=== PATIENT | male | born 1960 | race Caucasian/White ===

== ENCOUNTER 2019-10-31 11:06 | Inpatient (IN) | payer OTHER, BC ==
[2019-10-31] VITALS (8 sets, daily range): BP systolic 112–136; BP diastolic 72–90
[~2019-10-31] VITALS: Ht 182.9 cm; Wt 117.5 kg
[~2019-10-31 11:06] MED LIST: MOTRIN800 MG PO; SYNTHROID,LEVO75 MCG PO; VICODIN 500 MG-1 TAB PO
[2019-10-31] MEDS ORDERED: LOSARTAN POTASS25 M1 PO (11:22)
[2019-10-31] MEDS ORDERED: GEMFIBROZIL600 MG PO (11:23)
[2019-10-31 11:59] LABS: BASO # 0.1 10*3/uL (0.0-0.1); BASO % 1.2 % (0.0-1.0); EOS # 0.2 10*3/uL (0.0-0.4); EOS % 4.4 % (1.0-4.0); HEMATOCRIT 43.5 % (42.0-52.0); LYMPH # 1.8 10*3/uL (1.3-4.4); LYMPH % 36.5 % (27.0-41.0); MEAN CELL VOLUME 89.5 fl (80.0-94.0); MEAN CORPUSCULAR HGB CONC 32.4 g/dl (33.0-37.0); MEAN PLATELET VOLUME 11.1 fl (9.6-12.3); MONO # 0.5 10*3/uL (0.1-1.0); MONO % 10.8 % (3.0-9.0); NEUT # 2.4 10*3/uL (2.3-7.9); NEUT % 47.1 % (47.0-73.0); PLATELET COUNT AUTOMATED 255 10*3/uL (130-400); RED BLOOD COUNT 4.86 10*6/uL (4.50-5.90); RED CELL DISTRI WIDTH 13.5 % (0-14.5)
[2019-10-31 12:15] LABS: ALBUMIN 3.3 gm/dl (3.1-4.5); ALKALINE PHOSPHATASE 86 U/L (45-117); BUN 18 mg/dl (7-24); CHLORIDE 109 mmol/L (98-107); CREATININE 0.79 mg/dL (0.70-1.30); SGOT/AST 13 IU/L (3-35); SGPT/ALT 22 U/L (12-78); SODIUM 139 mmol/L (136-145); TOTAL PROTEIN 7.4 gm/dL (6.4-8.2)
[2019-10-31 12:20] LABS: TROPONIN I < 0.015 ng/ml (<0.045)
[2019-10-31 12:21] LABS: THYROID STIM HORMONE (HS) 0.665 uIU/ml (0.358-4.75)
--- NOTE | 2019-10-31 13:27 | NUR ---
NO CHANGE IN PATIENT STATUS/ASSESSMENT.
--- NOTE | 2019-10-31 14:29 | NUR ---
PATIENT AWARE OF ADMISSION. AWAITING BED ASSIGNMENT. NO CHANGE IN PATIENT STATUS OR ASSESSMENT. HE HAS AMBULATED TO THE BATHROOM WITHOUT DIFFICULTY. CALL HILL WITHIN REACH, WILL CONTINUE TO MONITOR.
--- NOTE | 2019-10-31 15:30 | NUR ---
A 59, admitted to 5E, under the services of LEXA Mckeon DO with a diagnosis of NEW ONSET AFIB. Chief complaint is FAMILY DOCTOR SENT HERE FOR IRREGULAR HEART. Patient arrived via stretcher from ER. Monitor applied. Initial assessment completed. Vital signs taken and recorded. LEXA MCKEON DO notified of admission to the unit. Orders received. See assessment for past medical history, medications and allergies. Patient and/or family oriented to unit. [facility] visitation policy reviewed. Clothing/patient valuable form completed. KELSIE RUSH
--- NOTE | 2019-10-31 15:40 | NUR ---
ROOM IS NOW CLEAN AND READY . PATIENT WAS TRANSPORTED TO INPATIENT ROOM #532 WITHOUT INCIDENT.
--- NOTE | 2019-10-31 19:30 | NUR ---
REPORT RECEIVED FROM VIVIAN YUAN. PT LYING IN BED PLAYING ON PHONE AT THIS TIME. PT VOICES NO COMPLAINTS. CALL LIGHT IN REACH
--- NOTE | 2019-10-31 22:00 | NUR ---
PT LYING IN BED AT THIS TIME PLAYING ON PHONE. CALL LIGHT IN REACH
[2019-11-01] VITALS (7 sets, daily range): BP systolic 103–124; BP diastolic 63–88
--- NOTE | 2019-11-01 01:00 | NUR ---
PT SLEEPING AT THIS TIME
--- NOTE | 2019-11-01 03:00 | NUR ---
PT UP TO BR AT THIS TIME. HR IN 130'S PER CM. PT RETURNS TO BED, HR BACK TO NORMAL. PT ASYMPTOMATIC. CALL LIGHT IN REACH
[2019-11-01 06:18] LABS: BASO # 0.1 10*3/uL (0.0-0.1); BASO % 1.1 % (0.0-1.0); EOS # 0.3 10*3/uL (0.0-0.4); EOS % 4.9 % (1.0-4.0); HEMATOCRIT 48.2 % (42.0-52.0); LYMPH # 2.2 10*3/uL (1.3-4.4); LYMPH % 39.5 % (27.0-41.0); MEAN CELL VOLUME 91.1 fl (80.0-94.0); MEAN CORPUSCULAR HGB 28.9 pg (27.0-31.0); MEAN CORPUSCULAR HGB CONC 31.7 g/dl (33.0-37.0); MEAN PLATELET VOLUME 11.6 fl (9.6-12.3); MONO # 0.6 10*3/uL (0.1-1.0); NEUT # 2.4 10*3/uL (2.3-7.9); NEUT % 44.3 % (47.0-73.0); PLATELET COUNT AUTOMATED 257 10*3/uL (130-400); RED BLOOD COUNT 5.29 10*6/uL (4.50-5.90); RED CELL DISTRI WIDTH 13.4 % (0-14.5); WHITE BLOOD COUNT 5.5 10*3/uL (4.8-10.8)
[2019-11-01 06:19] LABS: ALBUMIN 3.7 gm/dl (3.1-4.5); BUN 17 mg/dl (7-24); CHLORIDE 105 mmol/L (98-107); CHOLESTEROL 188 mg/dL (<200); CREATININE 0.86 mg/dL (0.70-1.30); POTASSIUM 4.4 mmol/L (3.5-5.1); SGOT/AST 16 IU/L (3-35); SGPT/ALT 27 U/L (12-78); SODIUM 137 mmol/L (136-145); TOTAL PROTEIN 7.9 gm/dL (6.4-8.2); TRIGLYCERIDES 161 mg/dl (<150); VLDL CHOLESTEROL 32 mg/dL (6-40)
[2019-11-01 06:21] LABS: ALKALINE PHOSPHATASE 95 U/L (45-117); HDL CHOLESTEROL 41 mg/dl (40-60); LDL CHOLESTEROL 115 mg/dL (9-159)
[2019-11-01 06:24] LABS: ACT PARTIAL THROMBO TIME 28.3 SECONDS (20.0-32.1)
[2019-11-01 07:34] LABS: VITAMIN D, 25-HYDROXY 25.3 ng/mL (30-100)
--- NOTE | 2019-11-01 09:00 | NUR ---
[facility] in to talk to patient. Patient states lives at home with . There are 3 steps in the home. Physician: johny Pharmacy: [facility] Home health services: none Patient's level of ADLs: INDEPENDENT Patient has working utilities: all working DME: none Follow-up physician's appointment after d/c: will be made by hospitalist nurse director upon discharge Does patient want to access PORTAL?: no Discharge plan discussed with patient, he lives at home with , he is independent in adls and ambulation, drives, works, he states he will return home when discharged and denies any home needs, case management will follow, he states his family will transport him home when discharged. SHARON OWUSU
--- NOTE | 2019-11-01 09:30 | NUR ---
DR. BALL HAS ROUNDED AND NEW ORDERS RECEIVED.
--- NOTE | 2019-11-01 12:30 | NUR ---
PATIENT TAKEN TO SURGERY FOR LILLY AND CARDIOVERSION.
[2019-11-01] MEDS ORDERED: METOPROLOL SUCC25 M2 PO (15:40)
[2019-11-01] MEDS ORDERED: VITAMIN D350 MC2 PO (15:40)
[2019-11-01] MEDS ORDERED: ELIQUIS5 M1 PO (15:40)
--- NOTE | 2019-11-01 15:53 | NUR ---
PATIENT HAS BEEN BACK IN ROOM IN NSR 70-80. DOCTOR ROUNDED AGAIN AND IS DISCHARGING PATIENT TO HOME.
--- NOTE | 2019-11-01 16:09 | NUR ---
PATIENT DISCHARGED TO HOME.
== END 2019-11-01 16:09 | disposition home or self-care (01) | DRG 309 ==
LOC: ED 11:06 → 5E 14:10 → EDHOLD 14:10 → 5E 14:27
PROVIDERS: Emergency Medicine; Internal Medicine; ADMIT Family Medicine
PROC: 5A2204Z Restoration of Cardiac Rhythm, Single (ICD-10-PCS; principal; 2019-11-01)
PROC: B24BZZ4 Ultrasonography of Heart with Aorta, Transesophageal (ICD-10-PCS; principal; 2019-11-01)
DX: I48.91 Unspecified atrial fibrillation (principal); E44.0 Moderate protein-calorie malnutrition; E03.9 Hypothyroidism, unspecified; I10 Essential (primary) hypertension; E78.00 Pure hypercholesterolemia, unspecified; R73.9 Hyperglycemia, unspecified; G47.33 Obstructive sleep apnea (adult) (pediatric); E87.8 Other disorders of electrolyte and fluid balance, not elsewhere classified; E66.9 Obesity, unspecified; Z96.652 Presence of left artificial knee joint; Z87.891 Personal history of nicotine dependence; Z80.3 Family history of malignant neoplasm of breast; Z68.35 Body mass index [BMI] 35.0-35.9, adult; Z79.899 Other long term (current) drug therapy; Z88.0 Allergy status to penicillin

== ENCOUNTER → 2020-01-02 | Outpatient (CLI) | payer OTHER, BC ==
[~2020-01-02] MED LIST changes: +ELIQUIS5 M1 PO; +GEMFIBROZIL600 MG PO; +LOSARTAN POTASS25 M1 PO; +METOPROLOL SUCC25 M2 PO; +VITAMIN D350 MC2 PO
[2020-01-02 14:25] LABS: BASO # 0.1 10*3/uL (0.0-0.1); BASO % 0.9 % (0.0-1.0); EOS # 0.3 10*3/uL (0.0-0.4); EOS % 5.1 % (1.0-4.0); HEMATOCRIT 42.8 % (42.0-52.0); LYMPH # 1.8 10*3/uL (1.3-4.4); LYMPH % 33.2 % (27.0-41.0); MEAN CELL VOLUME 91.8 fl (80.0-94.0); MEAN CORPUSCULAR HGB 29.6 pg (27.0-31.0); MEAN CORPUSCULAR HGB CONC 32.2 g/dl (33.0-37.0); MEAN PLATELET VOLUME 10.5 fl (9.6-12.3); MONO # 0.6 10*3/uL (0.1-1.0); MONO % 11.6 % (3.0-9.0); NEUT # 2.6 10*3/uL (2.3-7.9); PLATELET COUNT AUTOMATED 308 10*3/uL (130-400); RED BLOOD COUNT 4.66 10*6/uL (4.50-5.90); RED CELL DISTRI WIDTH 13.9 % (0-14.5); WHITE BLOOD COUNT 5.3 10*3/uL (4.8-10.8)
[2020-01-02 15:15] LABS: BODY FLUID WBC 1215 /uL
[2020-01-02 16:26] LABS: BF LYMPHOCYTES 33 %; BF MACROPHAGES 20 %; BF NEUTROPHILS 47 %
[2020-01-03 11:11] LABS: ACID FAST SPEC PROCESSING Direct Inoculation (.)
== END | disposition home or self-care (01) ==
LOC: LAB 14:07
PROVIDERS: ATTEND Orthopaedic Surgery
DX: M25.562 Pain in left knee (principal); M25.462 Effusion, left knee

== ENCOUNTER → 2020-01-23 | Outpatient (CLI) | payer OTHER, BC ==
[2020-01-23 10:16] LABS: ACT PARTIAL THROMBO TIME 29.6 SECONDS (20.0-32.1)
== END | disposition home or self-care (01) ==
LOC: LAB 09:42
PROVIDERS: ATTEND Family Medicine
DX: Z01.818 Encounter for other preprocedural examination (principal); R53.83 Other fatigue; R79.89 Other specified abnormal findings of blood chemistry

== ENCOUNTER → 2023-03-02 | Outpatient (CLI) | payer BC | END | disposition home or self-care (01) | LOC: LAB 00:20 → CT 16:00 | PROVIDERS: ATTEND Urology | DX: Z01.812 Encounter for preprocedural laboratory examination (principal); D40.0 Neoplasm of uncertain behavior of prostate; I10 Essential (primary) hypertension; R53.83 Other fatigue; R31.9 Hematuria, unspecified ==

== ENCOUNTER → 2023-10-14 | Day surgery (SDC) | payer BC ==
[~2023-10-14] VITALS: Ht 182.8 cm; Wt 120.2 kg
[~2023-10-14] MED LIST changes: +ATORVASTATIN CA40 M1 PO; +FLECAINIDE ACE100 M1 PO; +FLECAINIDE ACETATE 100 MG TAB PO SCH; +HUMALOG100 UNIT/2 SC; +METOPROLOL SUCC50 M1 PO; +Midazolam Hydrochloride 2 MG/2 ML VIAL IV ONE; +PROPOFOL 200 MG/20 ML VIAL IV ONE; +SODIUM CHLORIDE 0.9% 1,000 ML IV ONE; +SODIUM CHLORIDE 0.9% 1,000 ML IV SCH
[2023-10-14 10:33] VITALS: BP 136/66
[2023-10-14 11:11] VITALS: BP 103/61
[2023-10-14 11:26] VITALS: BP 95/65
[2023-10-14 11:41] VITALS: BP 102/45
== END | disposition home or self-care (01) ==
LOC: SDC 10-13 08:00
PROVIDERS: ATTEND Internal Medicine
DX: I48.91 Unspecified atrial fibrillation (principal); I25.2 Old myocardial infarction; I49.1 Atrial premature depolarization; R06.02 Shortness of breath; E78.5 Hyperlipidemia, unspecified; I10 Essential (primary) hypertension; E03.9 Hypothyroidism, unspecified; G47.33 Obstructive sleep apnea (adult) (pediatric); E11.9 Type 2 diabetes mellitus without complications; E66.9 Obesity, unspecified; Z68.37 Body mass index [BMI] 37.0-37.9, adult; Z87.891 Personal history of nicotine dependence; Z79.899 Other long term (current) drug therapy; Z88.0 Allergy status to penicillin; Z80.3 Family history of malignant neoplasm of breast

== ENCOUNTER → 2024-03-28 | Outpatient (CLI) | payer BC ==
[~2024-03-28] MED LIST changes: -FLECAINIDE ACETATE 100 MG TAB PO SCH; -Midazolam Hydrochloride 2 MG/2 ML VIAL IV ONE; -PROPOFOL 200 MG/20 ML VIAL IV ONE; -SODIUM CHLORIDE 0.9% 1,000 ML IV ONE; -SODIUM CHLORIDE 0.9% 1,000 ML IV SCH
[2024-03-28 15:36] LABS: BASO # 0.1 10*3/uL (0.0-0.1); BASO % 0.8 % (0.0-1.0); EOS # 0.3 10*3/uL (0.0-0.4); EOS % 4.7 % (1.0-4.0); HEMATOCRIT 41.2 % (42.0-52.0); MEAN CELL VOLUME 90.7 fl (80.0-94.0); MEAN CORPUSCULAR HGB 29.3 pg (27.0-31.0); MEAN CORPUSCULAR HGB CONC 32.3 g/dl (33.0-37.0); MEAN PLATELET VOLUME 11.5 fl (9.6-12.3); MONO # 0.6 10*3/uL (0.1-1.0); NEUT # 3.3 10*3/uL (2.3-7.9); NEUT % 51.4 % (47.0-73.0); PLATELET COUNT AUTOMATED 270 10*3/uL (130-400); RED BLOOD COUNT 4.54 10*6/uL (4.50-5.90); RED CELL DISTRI WIDTH 13.2 % (0-14.5); WHITE BLOOD COUNT 6.4 10*3/uL (4.8-10.8)
[2024-03-28 19:38] LABS: BF LYMPHOCYTES 7 %; BF MACROPHAGES 78 %; BF NEUTROPHILS 15 %
[2024-03-29 17:02] LABS: ACID FAST SPEC PROCESSING Direct Inoculation (.)
== END | disposition home or self-care (01) ==
LOC: LAB 15:19
PROVIDERS: ATTEND Orthopaedic Surgery
DX: M25.462 Effusion, left knee (principal); M25.562 Pain in left knee; R53.83 Other fatigue

== ENCOUNTER → 2025-03-04 | Outpatient (CLI) | payer BC | END | disposition home or self-care (01) | LOC: US 12:48 | PROVIDERS: ATTEND Family Medicine | DX: E04.9 Nontoxic goiter, unspecified (principal); E03.9 Hypothyroidism, unspecified ==